=== PATIENT | female | born 1960 | race Caucasian/White ===

== ENCOUNTER → 2019-02-28 | Outpatient (CLI) | payer OTHER ==
[~2019-02-28] MED LIST: FOLIC ACID PO; PEPCID20 MG PO
--- NOTE | 2019-02-28 14:54 | Diagnostic Imaging Report ---
EXAM: US ABDOMEN COMPLETE DATE: 02/28/2019 11:36 AM INDICATION: Abdominal pain COMPARISON: None TECHNIQUE: Transverse and longitudinal osborne scale and color doppler sonographic images of the upper abdomen were obtained. FINDINGS: There is no evidence of fluid or masses seen in the area of clinical concern in the right lower quadrant. LIVER 10.6 cm in the right midclavicular line. Increased echogenicity of the liver with coarse echotexture, nodular surface contour. No focal mass. SPLEEN 11.3 cm in maximum diameter. Normal echogenicity, no masses. GALLBLADDER Status post cholecystectomy. BILE DUCTS No intra nor extra-hepatic biliary dilation. Common bile duct measures 3 mm PANCREAS: Visualized portions are normal. RIGHT KIDNEY: 9.5 cm Echogenicity: Normal Collecting System: No hydronephrosis Stones: None Cyst/Mass: None LEFT KIDNEY: 9.5 cm Echogenicity: Normal Collecting System: No hydronephrosis Stones: None Cyst/Mass: None VESSELS: Aorta: Visualized portions are within normal size limits Inferior Vena Cava: Visualized portions are normal Main Portal Vein: 0.5 cm, normal size with hepatopetal flow. FREE FLUID: Small volume ascites IMPRESSION: Hepatic cirrhosis. Small volume ascites. Status post cholecystectomy. Signed by: Yehuda Mendoza MD on 02/28/2019 2:51 PM
== END ==
LOC: US 11:21
PROVIDERS: ATTEND Internal Medicine Gastroenterology
DX: R10.13 Epigastric pain (principal)
CPT/HCPCS: 76700

== ENCOUNTER → 2019-03-07 | Outpatient (CLI) | payer OTHER ==
[~2019-03-07] MED LIST changes: +LIDOCAINE HCL 1% LOCAL INJ 20 ML VIAL ONE
[2019-03-07 13:38] LABS: BASOPHILS % 0.6 % (0.0-1.0); EOSINOPHILS # (AUTO) 0.1 (0.0-0.4); EOSINOPHILS % 2.3 % (0.0-6.0); HEMATOCRIT 40.7 % (34.2-44.1); HEMOGLOBIN 13.7 g/dL (12.0-16.0); LYMPHOCYTES # (AUTO) 1.1 (1.0-3.2); LYMPHOCYTES % 23.2 % (18.0-39.1); MEAN CORPUSCULAR HEMOGLOBIN 34.7 pg (28-32); MEAN CORPUSCULAR HGB CONC 33.7 g/dL (31-35); MONOCYTES # (AUTO) 0.6 (0.2-0.8); MONOCYTES % 12.3 % (4.4-11.3); NEUTROPHILS % 61.2 % (38.7-80.0); PLATELET COUNT 92 x10e3/uL (140-360); RED BLOOD COUNT 3.95 x10e6/uL (3.6-5.1); RED CELL DISTRIBUTION WIDTH 14.6 % (11.7-14.4)
[2019-03-07 14:04] LABS: INR 1.3; PROTHROMBIN TIME 16.8 seconds (11.9-14.5)
[2019-03-07 14:05] LABS: PARTIAL THROMBOPLASTIN TIME 37.3 seconds (23.8-35.5)
[2019-03-07 15:17] LABS: BODY FLUID APPEARANCE SL.CLOUDY; BODY FLUID COLOR STRAW; BODY FLUID TYPE PERITONEAL
[2019-03-07 15:56] LABS: RBC,BODY FLUID 154 cells/uL; WBC,BODY FLUID 45 cells/uL
--- NOTE | 2019-03-07 16:12 | Diagnostic Imaging Report ---
Procedure: Ultrasound-guided paracentesis multiple tube winding machine operator: eDnys Kent M.D. Pre-operative diagnosis: Ascites Post-operative diagnosis: Ascites Conscious Sedation: None. The patient's heart rate and pulse oximetry were continuously monitored by the IR nurse. Additional Medications: Lidocaine 1% for local anesthesia Estimated blood loss: Less than 1 cc. Specimen: 1800 cc of cloudy yellow fluid Implants: None TECHNIQUE/FINDINGS: Informed consent was obtained from the patient and documented in the medical record. The patient was placed in the supine position. Initial ultrasound demonstrated ascites. The right upper abdomen was prepped and draped in standard sterile fashion. 1% lidocaine was infiltrated into the skin and subcutaneous tissues for local anesthesia. Then under continuous sonographic guidance, a 5 Fr catheter was advanced into the peritoneal space. The catheter was connected to vacuum bottle with subsequent evacuation of 1800 cc of serous fluid. The catheter was removed and sterile dressing was applied. Sample was sent to the lab. The patient tolerated the procedure well. IMPRESSION: Successful ultrasound-guided paracentesis. Signed by: Denys Kent on 03/07/2019 4:09 PM
[2019-03-07 18:47] LABS: LYMPHOCYTES,BODY FLUID 41 %; MONO/MACROPHG,BODY FLUID 6 %; NEUTROPHILS,BODY FLUID 9 %; OTHER CELLS,BODY FLUID 44 %
== END ==
LOC: US 12:47
PROVIDERS: ATTEND Internal Medicine Gastroenterology
DX: R17 Unspecified jaundice (principal)
CPT/HCPCS: 36415; 49083; 82040; 84157; 85025; 85610; 85730; 87070; 87205; 89051; C1729; J2001

== ENCOUNTER → 2019-03-22 | Outpatient (CLI) | payer OTHER ==
[~2019-03-22] MED LIST changes: +ALBUMIN 25% 12.5GM 50ML 0 ML IV ONE; +IOPAMIDOL 370 MG/ML 200 ML INFUS..BTL INJ ONE; -LIDOCAINE HCL 1% LOCAL INJ 20 ML VIAL ONE; +SODIUM CHLORIDE 0.9% 50ML 50 ML ONE
[2019-03-22 12:29] LABS: BLOOD UREA NITROGEN 5 mg/dL (7-26); BUN/CREATININE RATIO 7 (6-25); CREATININE, SERUM 0.67 mg/dL (0.57-1.11); EST GLOMERULAR FILTRATION RATE > 60 ML/MIN (60-)
--- NOTE | 2019-03-22 15:21 | Diagnostic Imaging Report ---
EXAMINATION: CT of the abdomen with contrast. TECHNIQUE: Spiral CT images of the abdomen were performed from the lung bases to the iliac crests after the intravenous administration of 100 cc of Isovue-370 and the oral administration of Redicat. Coronal and sagittal reformatted images were obtained. COMPARISON: None. CLINICAL HISTORY:Abdominal ultrasound 02/28/2019 DISCUSSION: LOWER THORAX:Bandlike atelectasis in the right lower lobe. No pleural or pericardial effusion. HEPATOBILIARY: Shrunken, nodular liver with relative hypertrophy of the left lobe in keeping with cirrhosis. Questionable 1.3 cm hyperattenuating lesion in segment 6 seen on series 2 image 22. No additional focal hepatic lesion. No intrahepatic biliary ductal dilatation. Status post cholecystectomy. SPLEEN: The spleen is enlarged, measuring 13 cm in craniocaudal span. No focal splenic lesions. PANCREAS: No focal masses or ductal dilatation. ADRENALS: No adrenal nodules. KIDNEYS/URETERS: No hydronephrosis, stones, or solid mass lesions. PERITONEUM/RETROPERITONEUM: Small volume perihepatic and perisplenic ascites, tracking along the paracolic gutters, average internal attenuation 0-10 Hounsfield units. No pneumoperitoneum. LYMPH NODES: No retroperitoneal or mesenteric lymphadenopathy. VESSELS: The abdominal aorta, major branch vessels, and renal veins are patent. Nonocclusive hypoattenuating filling defect in the main portal vein for example on series 2 image 25, with extension to the left portal vein. GI TRACT: Postsurgical changes of the proximal stomach. No bowel dilatation or wall thickening. BONES AND SOFT TISSUE: No osseous destructive lesions. Multiple small ventral hernia defects contain omental fat and vessels. No herniated bowel. IMPRESSION: Cirrhosis with portal hypertension, evidenced by splenomegaly and ascites. Nonocclusive thrombus in the main and left portal veins. Questionable hyperattenuating lesion in hepatic segment 6 should be further evaluated by CT or MRI of the abdomen with and without contrast (liver mass protocol) given background cirrhosis. Signed by: Dr. Navneet Davis M.D. on 03/22/2019 3:18 PM
--- NOTE | 2019-03-22 15:28 | Diagnostic Imaging Report ---
EXAM: Limited abdominal ultrasound. INDICATION: ^[id number] ^1320 ^ASCITES COMPARISON: None TECHNIQUE: Gill scale images of all 4 quadrants of the abdomen were obtained. FINDINGS/IMPRESSION: Trace abdominal ascites, insufficient for safe performance of paracentesis. Signed by: Yehuda Mendoza MD on 03/22/2019 3:25 PM
== END ==
LOC: US 11:40
PROVIDERS: ATTEND Internal Medicine Gastroenterology
DX: R18.8 Other ascites (principal); K72.90 Hepatic failure, unspecified without coma; K74.60 Unspecified cirrhosis of liver
CPT/HCPCS: 36415; 74160; 76705; 82565; 84520; Q9967

== ENCOUNTER → 2019-03-29 | Day surgery (SDC) | payer OTHER ==
[~2019-03-29] MED LIST changes: -ALBUMIN 25% 12.5GM 50ML 0 ML IV ONE; +DONNATAL PO; +ELDERBERRY PO; +FENTANYL CITRATE/PF 100MCG/2 ML INJ ONE; -IOPAMIDOL 370 MG/ML 200 ML INFUS..BTL INJ ONE; +MAGNESIUM OXID400 MG PO; +MIDAZOLAM HCL 2 MG/2 ML VIAL ONE; +PROPOFOL IV EMULSION 10 MG/ML 20 ML VIAL ONE; -SODIUM CHLORIDE 0.9% 50ML 50 ML ONE; +SPIRONOLACTONE25 MG PO
--- OUTSIDE RECORDS SUMMARY | 2019-03-29 10:35 | XMS REPORT | Encounter Summary ---
Author Organization Unknown Address [address] [place] [address] Phone [phone] Care Team Providers Care Deck Hand Name Role Phone Dr. Paul Velázquez 3 [phone] Dami Williamson MD 188 [phone] Reason for Visit sore throat; other - see typed reason; cough / congestion Instructions 1. Acute sinusitis fluticasone propionate 50 mcg/actuation nasal spray,suspension Augmentin 875 mg-125 mg tablet Virtussin AC 10 mg-100 mg/5 mL oral liquid 2. Sore throat symptom rapid strep group A, throat Discussion Note: None recorded. Patient educational handouts: No information available. Plan of Care Reminders Provider Appointments None recorded. Lab Rapid Strep Group a, Throat 03/01/2019 [facility] Referral None recorded. Procedures None recorded. Surgeries None recorded. Imaging None recorded. Medications Name Start Date ascorbic acid (vitamin C) 500 mg tablet Take 1 tablet every day by oral route. Aspir-81 PRN Augmentin 875 mg-125 mg tablet Take 1 tablet every 12 hours by oral route as directed for 10 days. fluticasone propionate 50 mcg/actuation nasal spray,suspension [place] 1 spray twice a day by intranasal route as directed for 14 days. folic acid 1 mg tablet Take 1 tablet every day by oral route. magnesium DAILY metoprolol succinate ER 50 mg tablet,extended release 24 hr Take 1 tablet every day by oral route as directed for 30 days. Virtussin AC 10 mg-100 mg/5 mL oral liquid Take 10 mL every 8 hours by oral route as needed for 5 days. Medications Administered None recorded. Vitals Height Weight BMI Blood Pressure 5 ft 1 in 263.2 lbs 49.7 kg/m2 (1) 150/105 mm[Hg] (2) 151/100 mm[Hg] Results Lab Results Date Name Specimen Result Interpretation Description Value Range Status Address Rapid Strep Group a, Throat Strep negative [facility]: [address] [facility] Allergies Code Code System Name Reaction Severity Status Onset Sulfa (Sulfonamide Antibiotics) Abdominal Pain Severe Active 07/08/1996 Problems Name Status Onset Date Source History of Bypass of Stomach Active 10/01/2018 Chest Pain at Rest Active External Procedures Date Name Performed by 12/26/1996 Gastrointestinal Surgery Information not available 11/26/1991 Hysterectomy (Total) Information not available 10/26/1987 Tubal Ligation Information not available 03/27/1985 Caesarean Section Information not available Vaccine List Vaccine Type Tdap 02/03/20190.5 mL Social History Tobacco Smoking Status Former Smoker Past Encounters 03/01/2019 Acute Sinusitis; Sore Throat Symptom Paul Gardner MD: [address] [place] [address], Ph. 02/03/2019 Gastroesophageal Reflux Disease; Benign Essential Hypertension; Screening for Malignant Neoplasm of Colon; Influenza Vaccination Declined; Screening for Malignant Neoplasm of Breast; Immunization; Snoring; Chest Pain Paul Gardner MD: [address] [place] [address], Ph. History of Present Illness Note:Hx of HTN. Pt d/c metoprolol. BPs at home in the 120s/70s without medication.Pt presents with complaints of productive cough and low grade fever. Pt has had symptoms for about 7 days, she was seen at an urgent care and was given a steroid shot and oral steroids with no relief. Pt also complains of sore throat, sinus pressure, runny nose and nasal congestion. Denies sob, wheezing or chest pain. Review of Systems:ROS as noted in the HPI Review of Systems None recorded. Physical Exam General Adult Exam (male) Reported By: Patient Constitutional: General Appearance: healthy-appearing, morbidly obese. Level of Distress: NAD. Ambulation: ambulating normally Eyes: Lids and Conjunctivae: non-injected, no discharge ENMT: Ears: TMs clear. Nose: nares non-patent, sinus tenderness, nasal discharge--purulent, post nasal drip. Lips, Teeth, and Gums: no mouth or lip ulcers. Oropharynx: moist mucous membranes, no exudates, tonsils not enlarged, erythema Neck: Neck: supple, trachea midline. Lymph Nodes: cervical LAD Lungs: Respiratory effort: no dyspnea. Auscultation: breath sounds normal Cardiovascular: Heart Auscultation: RRR, normal S1, normal S2, no murmurs Neurologic: Gait and Station: normal gait
--- OUTSIDE RECORDS SUMMARY | 2019-03-29 10:35 | XMS REPORT ---
Author [facility] Address Unknown Phone Unavailable Care Team Providers Care Head Athletic Trainer Name Role Phone MAGY BIGGS Unavailable Unavailable Payers Payer Name Policy Type Policy Number Effective Date Expiration Date Problems This patient has no known problems. Allergies, Adverse Reactions, Alerts Allergy Name Allergy Type Status Severity Reaction(s) Onset Date Inactive Date Treating Clinician Comments Sulfa (Sulfonamide Antibiotics) DA Active SV 2016-08-18 00:00:00 SULFA DRUGS DA Active NC 2016-08-18 00:00:00 TAPE DA Active NC 2016-08-18 00:00:00 No Known Contrast Allergies DA Active U 2003-07-28 00:00:00 No Known Food Allergies DA Active U 2003-07-28 00:00:00 Medications This patient has no known medications. Results Test Description Test Time Test Comments Text Results Atomic Results Result Comments US ABDOMEN LIMITED 2019-03-22 15:24:00 [place] [address] Patient Name: MANNY CANTRELL MR #: [id number] : 1960 Age/Sex: 58/F Req #: [id number] Adm Physician: Ordered by: MAGY BIGGS MD Report #: [id number] Location: US Room/Bed: Procedure: [id number] US/US ABDOMEN LIMITED Exam Date: 03/22/19 Exam Time: 1320 REPORT STATUS: Signed EXAM: Limited abdominal ultrasound. INDICATION: [id number] 1320 ASCITES COMPARISON: None TECHNIQUE: Gill scale images of all 4 quadrants of the abdomen were obtained. FINDINGS/IMPRESSION: Trace abdominal ascites, insufficient for safe performance of paracentesis. Signed by: Amaury Ramos MD on 03/22/2019 3:25 PM Dictated By: AMAURY RAMOS MD 1525 Transcribed By: FANTASMA on 03/22/19 1525 COPY TO: MAGY BIGGS MD CT ABDOMEN W 2019-03-22 15:07:00 [place] [address] Patient Name: MANNY CANTRELL MR #: [id number] : 1960 Age/Sex: 58/F Req #: [id number] Adm Physician: Ordered by: MAGY BIGGS MD Report #: [id number] Location: Room/Bed: Procedure: [id number] CT/CT ABDOMEN W Exam Date: 03/22/19 Exam Time: 1315 REPORT STATUS: Signed EXAMINATION: CT of the abdomen with contrast. TECHNIQUE: Spiral CT images of the abdomen were performed from the lung bases to the iliac crests after the intravenous administration of 100 cc of Isovue-370 and the oral administration of Redicat. Coronal and sagittal reformatted images were obtained. COMPARISON: None. CLINICAL HISTORY:Abdominal ultrasound 02/28/2019 DISCUSSION: LOWER THORAX:Bandlike atelectasis in the right lower lobe. No pleural or pericardial effusion. HEPATOBILIARY: Shrunken, nodular liver with relative hypertrophy of the left lobe in keeping with cirrhosis. Questionable 1.3 cm hyperattenuating lesion in segment 6 seen on series 2 image 22. No additional focal hepatic lesion. No intrahepatic biliary ductal dilatation. Status post cholecystectomy. SPLEEN: The spleen is enlarged, measuring 13 cm in craniocaudal span. No focal splenic lesions. PANCREAS: No focal masses or ductal dilatation. ADRENALS: No adrenal nodules. KIDNEYS/URETERS: No hydronephrosis, stones, or solid mass lesions. PERITONEUM/RETROPERITONEUM: Small volume perihepatic and perisplenic ascites, tracking along the paracolic gutters, average internal attenuation 0-10 Hounsfield units. No pneumoperitoneum. LYMPH NODES: No retroperitoneal or mesenteric lymphadenopathy. VESSELS: The abdominal aorta, major branch vessels, and renal veins are patent. Nonocclusive hypoattenuating filling defect in the main portal vein for example on series 2 image 25, with extension to the left portal vein. GI TRACT: Postsurgical changes of the proximal stomach. No bowel dilatation or wall thi ckening. BONES AND SOFT TISSUE: No osseous destructive lesions. Multiple small ventral hernia defects contain omental fat and vessels. No herniated bowel. IMPRESSION: Cirrhosis with portal hypertension, evidenced by splenomegaly and ascites. Nonocclusive thrombus in the main and left portal veins. Questionable hyperattenuating lesion in hepatic segment 6 should be further evaluated by CT or MRI of the abdomen with and without contrast (liver mass protocol) given background cirrhosis. Signed by: Dr. Liset Brantley M.D. on 03/22/2019 3:18 PM Dictated By: LISET BRANTLEY MD 1518 Transcribed By: FANTASMA on 03/22/19 6102 COPY TO: MAGY BIGGS MD US GUIDED PARACENTESIS 2019-03-07 16:09:00 [place] [address] Patient Name: MANNY CANTRELL MR #: [id number] : 1960 Age/Sex: 58/F Req #: [id number] [facility] Physician: Ordered by: MAGY BIGGS MD Report #: [id number] Location: Room/Bed: Procedure: [id number] US/US GUIDED PARACENTESIS Exam Date: 03/07/19 Exam Time: 1416 REPORT STATUS: Signed Procedure: Ultrasound-guided paracentesis transfer car operator: Denys Kent M.D. Pre-operative diagnosis: Ascites Post- operative diagnosis: Ascites Conscious Sedation: None. The patient's heart rate and pulse oximetry were continuously monitored by the IR nurse. Additional Medications: Lidocaine 1% for local anesthesia Estimated blood loss: Less than 1 cc. Specimen: 1800 cc of cloudy yellow fluid Implants: None TECHNIQUE/FINDINGS: Informed consent was obtained from the patient and documented in the medical record. The patient was placed in the supine position. Initial ultrasound demonstrated ascites. The right upper abdomen was prepped and draped in standard sterile fashion. 1% lidocaine was infiltrated into the skin and subcutaneous tissues for local anesthesia. Then under continuous sonographic guidance, a 5 Fr catheter was advanced into the peritoneal space. The catheter was connected to vacuum bottle with subsequent evacuation of 1800 cc of serous fluid. The catheter was removed and sterile dressing was applied. Sample was sent to the lab. The patient tolerated the procedure well. IMPRESSION: Successful ultrasound-guided paracentesis. Signed by: Denys Kent on 03/07/2019 4:09 PM Dictated By: DENYS KENT MD Transcribed By: FANTASMA on 03/07/197 COPY TO: MAGY BIGGS MD US ABDOMEN COMPLETE 2019-02-28 14:49:00 [place] [address] Patient Name: MANNY CANTRELL MR #: [id number] : 1960 Age/Sex: 58/F Req #: [id number] Adm Physician: Ordered by: MAGY BIGGS MD Report #: [id number] Location: Room/Bed: Procedure: [id number] US/US ABDOMEN COMPLETE Exam Date: 02/28/19 Exam Time: 1212 REPORT STATUS: Signed EXAM: US ABDOMEN COMPLETE DATE: 02/28/2019 11:36 AM INDICATION: Abdominal pain COMPARISON: None TECHNIQUE: Transverse and longitudinal gill scale and color doppler sonographic images of the upper abdomen were obtained. FINDINGS: There is no evidence of fluid or masses seen in the area of clinical concern in the right lower quadrant. LIVER 10.6 cm in the right midclavicular line. Increased echogenicity of the liver with coarse echotexture, nodular surface contour. No focal mass. SPLEEN 11.3 cm in maximum diameter. Normal echogenicity, no masses. GALLBLADDER Status post cholecystectomy. BILE DUCTS No intra nor extra- hepatic biliary dilation. Common bile duct measures 3 mm PANCREAS: Visualized portions are normal. RIGHT KIDNEY: 9.5 cm Echogenicity: Normal Collecting System: No hydronephrosis Stones: None Cyst/Mass: None LEFT KIDNEY: 9.5 cm Echogenicity: Normal Collecting System: No hydronephrosis Stones: None Cyst/Mass: None VESSELS: Aorta: Visualiz ed portions are within normal size limits Inferior Vena Cava: Visualized portions are normal Main Portal Vein: 0.5 cm, normal size with hepatopetal flow. FREE FLUID: Small volume ascites IMPRESSION: Hepatic cirrhosis. Small volume ascites. Status post cholecystectomy. Signed by: Amaury Ramos MD on 02/28/2019 2:51 PM Dictated By: AMAURY RAMOS MD 2565 Transcribed By: FANTASMA on 02/28/19 1451 COPY TO: MAGY BIGGS MD TROPONIN-I 2019-01-30 14:20:00 TROPONIN-I (test code=TROPI) <0.015 ng/mL 0-0.045 SPECIMEN COMMENTS: X [id number] 09:11:00* Test Item Value Reference Range Comments TROPONIN-I (test code=TROPI) <0.015 ng/mL 0-0.045 SPECIMEN COMMENTS: X 3VITAMIN [id number] 07:47:00* Test Item Value Reference Range Comments VITAMIN B12 (test code=VITB12) 1950 pg/mL [id number] FOLIC [id number] 07:47:00* Test Item Value Reference Range Comments FOLIC ACID (test code=FOL) 20.0 ng/mL 3.10-17.50 [id number] 07:24:00* Test Item Value Reference Range Comments TROPONIN-I (test code=TROPI) <0.015 ng/mL 0-0.045 SPECIMEN COMMENTS: X 3- US ABDOMEN [id number] 09:49:00 Name: MANNY CANTRELL [facility] : 1960 Age/S: 58 / F [address] [facility] Unit #: [id number] Loc: [place] [address] Phys: Gabriella Williamson MD Acct: [id number] Di s Date: Status: REG CLI PHONE #: Exam Date: 11/15/2018 0910 FAX #: Reason: THROMBOCYTOPENIA UNSPE... EXAMS: CPT CODE: [id number] US ABDOMEN CO MPLETE 69742 HISTORY: Thrombocytopenia . COMPARISON: None available. The liver is small and hyperechogenic suggesting of cirrhosis. No discrete mass is visible. The liver measured 10.6 cm in length. No intra or extrahepatic ductal dilatation. CBD is normal at 3.3 mm. Main portal vein is patent with hepat opedal flow and normal spectral waveform. Patient is post ch olecystectomy. No large ascites. Small perihepatic fluid. Ki dneys are free from hydronephrosis and calyceal stones. Normal echogenicit y and texture. Right kidney measuring 9.9 cm in length. Left kidney measur ing 10.7 cm in length. Spleen is not enlarged at 13 cm in length a nd is at the upper limits of normal. Small perisplenic fluid is noted. Vis ualized portions of the IVC and aorta and pancreas are mostly obscured due to bowel gas and difficult to assess. IMPRESSION: The spleen is at the upper limits of normal at 13 cm in length. Cirrhotic nodular shrunken liver measuring 10.6 cm in length. No disc rete mass visible. Small perisplenic and perihepatic fluid without large ascites. Patient is post cholecystectomy. at 0949 Reported and sig annmarie by: Geronimo Reyes M.D. CC: Paul Gamez MD; Isha Williamson MD Technologist: MARKOS TANG RT(R),RDMS Trnscb Date/Time: 11/15/2018 (0949) [email or web address] Orig Print D/T: S: 11/15/2018 (0953) Probe: PAGE 1 Signed Report
--- OUTSIDE RECORDS SUMMARY | 2019-03-29 10:35 | XMS REPORT | Encounter Summary ---
Author Organization Unknown Address [address] [place] [address] Phone [phone] Care Team Providers Care Pellet Press Operator Name Role Phone Dr. Paul Velázquez 3 [phone] Reason for Visit Bilateral leg problem; Bilateral knee pain/problem; Bilateral foot pain Instructions 1. Adult health examination urinalysis, dipstick TSH, serum or plasma CMP, serum or plasma CBC w/ auto diff lipid panel, serum 2. Edema of lower extremity BNP (B-type natriuretic peptide), serum or plasma 3. Screening for malignant neoplasm of colon fecal occult blood, stool 4. Body mass index 40+ - severely obese body mass index: care instructions learning about healthy weight 5. Screening for disorder 6. Screening for malignant neoplasm of cervix gynecology referral - Please call the patient and make an appointment Discussion Note: None recorded. Plan of Care Reminders Provider Appointments None recorded. Lab Fecal Occult Blood, Stool 10/01/2018 [facility] Urinalysis, Dipstick 10/01/[address] [facility] TSH, Serum or Plasma 10/01/2018 [facility] CMP, Serum or Plasma 10/01/2018 [facility] BNP (B-type Natriuretic Peptide), Serum or Plasma 10/01/2018 [facility] CBC W/ Auto Diff 10/01/2018 [facility] Lipid Panel, Serum 10/01/2018 [facility] Referral Gynecology Referral 10/01/2018 Jossie Ceja MD Procedures None recorded. Surgeries None recorded. Imaging None recorded. Medications Name Start Date melatonin Vitamin C Medications Administered None recorded. Vitals Height Weight BMI Blood Pressure 5 ft 1 in 258.8 lbs 48.9 kg/m2 127/72 mm[Hg] Lab Results Date Name Specimen Result Interpretation Description Value Range Status Address Urinalysis, Dipstick Color Color elizabeth [facility]: [address] Color Appearance clear [facility] [place]: [address] [place] Color Glucose negative [facility] ([facility] [place]: [address] [place] Color Bilirubin negative [facility] ([facility] [place]: [address] [place] Color Ketones negative [facility] ([facility]) [place]: [address] [place] Color Specific [place] 1.025 [facility] ([facility]) [place]: [address] [place] Color Blood negative [facility] [place]: [address] [place] Color PH 5.5 [facility] [place]: [address] [place] Color Protein negative [facility] ([facility]) [place]: [address] [place] Color Urobilinogen 0.2 [facility] ([facility]) [place]: [address] [place] Color Nitrites negative [facility] ([facility]) [place]: [address] [place] Color Leukocytes negative [facility] ([facility]) [place]: [address] [place] Allergies Code Code System Name Reaction Severity Status Onset Sulfa (Sulfonamide Antibiotics) Abdominal Pain Severe Active 07/08/1996 Problems Name Status Onset Date Source History of Bypass of Stomach Active 10/01/2018 Procedures Date Name Performed by 12/26/1996 Gastrointestinal Surgery Information not available 11/26/1991 Hysterectomy (Total) Information not available 10/26/1987 Tubal Ligation Information not available 03/27/1985 Caesarean Section Information not available Vaccine List None recorded. Social History Smoking Status Former Smoker Past Encounters 10/01/2018 Adult Health Examination; Edema of Lower Extremity; Screening for Malignant Neoplasm of Colon; Body Mass Index 40+ - Severely Obese; Screening for Disorder; Screening for Malignant Neoplasm of Cervix Paul Gardner MD: [address] [facility] [address], Ph. History of Present Illness Note:Bilateral leg swelling and pain since 2 years ago approximately. Worse with sitting for a long time. Denies sob, chest pain, palpitations or lightheadedness. Review of Systems Comprehensive General Adult ROS Reported By: Patient Constitutional: Constitutional: no fever Eyes: Eyes: no vision change ENMT: Ears: no ear pain. Nose: no sinus problems. Mouth/Throat: no sore throat Cardiovascular: Cardiovascular: no chest pain, no palpitations, no lightheadedness Respiratory: Respiratory: no cough, no wheezing, no shortness of breath Gastrointestinal: Gastrointestinal: no abdominal pain, no nausea, no vomiting, no constipation, no diarrhea Musculoskeletal: Musculoskeletal: no back pain, swelling in the extremities Integumentary: Skin: no rashes Neurologic: Neurologic: no loss of consciousness, no headaches Psychiatric: Psych: no depression, no alcohol abuse, no anxiety, no suicidal thoughts Physical Exam General Adult Exam (male) Reported By: Patient Constitutional: General Appearance: healthy-appearing, morbidly obese. Level of Distress: NAD. Ambulation: ambulating normally Psychiatric: Insight: good judgement. Mental Status: active and alert, normal mood, normal affect. Orientation: to time, to place, to person. Memory: recent memory normal, remote memory normal Eyes: Lids and Conjunctivae: non-injected, no discharge. Pupils: PERRLA. EOM: EOMI. Sclerae: non-icteric ENMT: Ears: no lesions on external ear, EACs clear, TMs clear. Nose: no lesions on external nose, nares patent, no septal deviation, nasal passages clear, no sinus tenderness, no nasal discharge. Lips, Teeth, and Gums: no mouth or lip ulcers. Oropharynx: moist mucous membranes Neck: Neck: supple, trachea midline. Thyroid: no enlargement, non-tender Lungs: Respiratory effort: no dyspnea. Auscultation: breath sounds normal Cardiovascular: Heart Auscultation: RRR, normal S1, normal S2, no murmurs. Neck vessels: no carotid bruits. Pulses including femoral / pedal: normal throughout Abdomen: Inspection and Palpation: soft, non-distended, no tenderness, no guarding Musculoskeletal:: Motor Strength and Tone: normal, normal tone. Joints, Bones, and Muscles: normal movement of all extremities, no bony abnormalities, no malalignment, tenderness. Extremities: edema Neurologic: Gait and Station: normal gait. Cranial Nerves: grossly intact. Sensation: grossly intact. Reflexes: DTRs 2+ bilaterally throughout. Coordination and Cerebellum: [id number] intact, no tremor Skin: Inspection and palpation: no rash, no lesions Back: Thoracolumbar Appearance: normal curvature; non tender with palpation
--- OUTSIDE RECORDS SUMMARY | 2019-03-29 10:35 | XMS REPORT | Encounter Summary ---
Author Organization Unknown Address [address] [place] [address] Phone [phone] Care Team Providers Care Mains And Service Supervisor Name Role Phone Dr. Paul Velázquez 3 [phone] Dami Williamson MD 188 [phone] Reason for Visit hospital follow up - TCM ([facility]) Instructions 1. Gastroesophageal reflux disease famotidine 20 mg tablet gastroenterology referral - *Please call the patient and make an appointment* PLEASE SEND BACK CONSULT NOTES TO [phone] 2. Benign essential hypertension metoprolol succinate ER 50 mg tablet,extended release 24 hr 3. Screening for malignant neoplasm of colon colon cancer screening, stool 4. Influenza vaccination declined 5. Screening for malignant neoplasm of breast 6. Immunization Adacel (Tdap Adolesn/Adult)(PF)2 Lf-(2.5-5-3-5)-5 Lf/0.5 mL IM syringe 7. Snoring sleep study referral - *Please call the patient and schedule* 8. Chest pain Discussion Note: None recorded. Patient educational handouts: No information available. Plan of Care Patient Instructions Thank you for scheduling your post hospital visit. Please let us know if you need help in scheduling follow up tests or specialist visits. Knowing what medicines to keep taking and which to ones to stop after a hospital stay can be confusing. Contact your physicians with your questions about what medications you should be taking. Our [facility] can also help you in this area. Contact them at . [facility] can help you choose the best Home Health agency. We can also help you with director of social work and community resources. Call us we are here to help. If you experience any new or concerning symptoms, call us immediately at . Evening and day clinic hours are now available. If you have problems after hours, you can reach the [facility] doctor electronics department manager at . Please follow up with your doctor in two weeks. Reminders Provider Appointments Est Patient 02/24/2019 11:45AM Paul Gardner MD Lab Colon Cancer Screening, Stool 02/03/2019 [email or web address] (Cologuard Orders Only) Referral Sleep Study Referral 02/03/2019 [facility] Gastroenterology Referral 02/03/2019 Jeremy Monzon Procedures None recorded. Surgeries None recorded. Imaging None recorded. Medications Name Start Date ascorbic acid (vitamin C) 500 mg tablet Take 1 tablet every day by oral route. Aspir-81 PRN famotidine 20 mg tablet Take 1 tablet twice a day by oral route as directed for 30 days. folic acid 1 mg tablet Take 1 tablet every day by oral route. magnesium DAILY melatonin 3 mg tablet Take 1 tablet every day by oral route at bedtime. metoprolol succinate ER 50 mg tablet,extended release 24 hr Take 1 tablet every day by oral route as directed for 30 days. multivitamin DAILY Medications Administered None recorded. Vitals Height Weight BMI Blood Pressure 5 ft 1 in 263.4 lbs 49.8 kg/m2 (1) 167/104 mm[Hg] (2) 152/101 mm[Hg] Results Lab Results None recorded. Allergies Code Code System Name Reaction Severity [...] Tobacco Smoking Status Former Smoker Past Encounters 02/03/2019 Gastroesophageal Reflux Disease; Benign Essential Hypertension; Screening for Malignant Neoplasm of Colon; Influenza Vaccination Declined; Screening for Malignant Neoplasm of Breast; Immunization; Snoring; Chest Pain Paul Gardner MD: [address] [place] [address], Ph. History of Present Illness TCM Provider Visit Reported By: Patient HPI: Timing: Date of admit:, Date of discharge:, Please describe what events led up to this hospitalization:. Discharge Information: Discharge Diagnoses:, Discharged from: [facility], Discharged to: Home, Hospital Records (H&P, DC Summary, Transition of Care Document) reviewed and scanned? Yes, Current Caregivers:self, Home health ordered? no, no, . Functional Status No difficulty following discharge instructions, Taking medications as prescribed, Understands missed doses, Following recommended activity level Notes: Feeling better today. She was d/c home with pepcid 20 mgs bid. Denies chest pain today, heartburn, melena, constipation or diarrhea. Review of Systems Comprehensive General Adult ROS [...] no constipation, no diarrhea Musculoskeletal: Musculoskeletal: no muscle aches, swelling in the extremities Neurologic: Neurologic: no loss of consciousness, no [...] Eyes: Lids and Conjunctivae: non-injected, no discharge. EOM: EOMI ENMT: Ears: TMs clear. Nose: nares patent. Lips, Teeth, and Gums: no mouth or lip ulcers. Oropharynx: moist mucous membranes Neck: Neck: supple, trachea midline. Thyroid: no enlargement, non-tender Lungs: Respiratory effort: no dyspnea. Auscultation: breath sounds normal Cardiovascular: Heart Auscultation: RRR, normal S1, normal S2, no murmurs. Neck vessels: no carotid bruits Abdomen: Inspection and Palpation: soft, non-distended, no tenderness, no guarding Musculoskeletal:: Motor Strength and Tone: normal, normal tone. Joints, Bones, and Muscles: normal movement of all extremities, no bony abnormalities, no malalignment, no tenderness. Extremities: edema Neurologic: Gait and Station: normal gait. Cranial Nerves: grossly intact. Reflexes: DTRs 2+ bilaterally throughout. Coordination and Cerebellum: no tremor Skin: Inspection and palpation: no rash, no lesions
[2019-03-29 14:30] VITALS: BP 112/71
== END | disposition home or self-care (01) ==
LOC: OR 10:30
PROVIDERS: ATTEND Internal Medicine Gastroenterology
DX: K72.90 Hepatic failure, unspecified without coma (principal); K29.50 Unspecified chronic gastritis without bleeding; K95.09 Other complications of gastric band procedure; K21.9 Gastro-esophageal reflux disease without esophagitis; Z98.84 Bariatric surgery status; K90.0 Celiac disease; R18.8 Other ascites; R76.8 Other specified abnormal immunological findings in serum; R94.5 Abnormal results of liver function studies; R79.0 Abnormal level of blood mineral; B19.10 Unspecified viral hepatitis B without hepatic coma; B19.20 Unspecified viral hepatitis C without hepatic coma; F17.290 Nicotine dependence, other tobacco product, uncomplicated; Z01.810 Encounter for preprocedural cardiovascular examination; Z88.2 Allergy status to sulfonamides; Z68.42 Body mass index [BMI] 45.0-49.9, adult
CPT/HCPCS: 43239; 93005; J2250; J3010